=== PATIENT | male | born 1960 | race African-American/Black ===

== ENCOUNTER 2016-12-03 21:05 | Inpatient (IN) | payer MEDICARE, OTHER ==
[2016-12-03 21:27] VITALS: BP 165/108
[2016-12-03] MEDS ORDERED: Albuterol Nebulizer 2.5mg/3mL HHN PRN (23:07)
[2016-12-03] MEDS ORDERED: Maalox 30 mL Cup PO PRN (23:10)
[2016-12-03 23:32] LABS: URINE BILIRUBIN NEGATIVE (NEGATIVE); URINE BLOOD TRACE (NEGATIVE); URINE COLOR YELLOW; URINE GLUCOSE (UA) NEGATIVE (NEGATIVE); URINE KETONE NEGATIVE (NEGATIVE)
[2016-12-03 23:33] LABS: URINE PROTEIN NEGATIVE (NEGATIVE); URINE UROBILINOGEN 0.2 E.U./dL (0.2 - 1.0)
[2016-12-03 23:37] LABS: URINE BACTERIA NONE SEEN /hpf (NONE SEEN); URINE EPITHELIAL CELLS OCCASIONAL /lpf (FEW); URINE RBC NONE SEEN /hpf (0-5); URINE WBC NONE SEEN /hpf (0-5)
[2016-12-04] MEDS: guaiFENesin 200 MG/10 ML UDC PO PRN ×2 (00:24→04:30)
[2016-12-04] MEDS ORDERED: Albuterol Nebulizer 2.5mg/3mL HHN ONE ×2 (03:26→05:52)
[2016-12-04] MEDS: methylPREDNISolone SS 40 mg Vial IVP SCH ×2 (04:23→12:21)
[2016-12-04 06:55] LABS: HEMATOCRIT 40.7 % (39.0-49.0); HEMOGLOBIN 13.4 gm/dL (13.2-17.3); MEAN CELL VOLUME 81.2 fl (80-99); MEAN CORPUSCULAR HEMOGLOBIN 26.6 pg (26.0-30.0); MEAN CORPUSCULAR HGB CONC 32.8 pg (28.0-36.0); PLATELET COUNT 136 Th/cmm (150-400); RED BLOOD COUNT 5.02 Mil/cmm (4.30-5.70); RED CELL DISTRIBUTION WIDTH 16.7 % (11.5-20.0); WHITE BLOOD COUNT 16.7 Th/cmm (4.8-10.8)
[2016-12-04 07:20] LABS: ALB/GLOB RATIO 1.7 (1.0-1.8); ANION GAP 6.2 (7.0-16.0); BUN - UREA NITROGEN 14 mg/dL (7-25); CALCIUM SERUM 9.1 mg/dL (8.6-10.3); CHLORIDE 96 mEq/L (98-107); CREATININE - SERUM 0.7 mg/dL (0.7-1.3); GLUCOSE 117 mg/dL (70-105); POTASSIUM SERUM 3.3 mEq/L (3.5-5.1); SODIUM SERUM 143 mEq/L (136-145)
[2016-12-04 07:21] LABS: ALKALINE PHOSPHATASE 39 U/L (34-104); BILIRUBIN,TOTAL 0.4 mg/dL (0.3-1.0); MAGNESIUM 1.9 mg/dL (1.9-2.7); SGOT 20 U/L (13-39); SGPT/ALT 35 U/L (7-52)
[2016-12-04 07:27] LABS: CARBON DIOXIDE 44.1 mEq/L (21.0-31.0)
[2016-12-04 07:51] LABS: TSH 0.29 uIU/ml (0.34-5.60)
[2016-12-04] MEDS ORDERED: Albuterol Nebulizer 2.5mg/3mL IH SCH (09:00)
[2016-12-04] MEDS ORDERED: Pneumococcal Vaccine 0.5 mL Vial IM ONE (09:00)
[2016-12-04] MEDS ORDERED: Ipratropium Neb 0.5 mg/2.5 mL UD HHN SCH (09:00)
[2016-12-04] MEDS ORDERED: Ipratropium Neb 0.5 mg/2.5 mL UD IH SCH (09:00)
[2016-12-04] MEDS ORDERED: Potassium Chloride 20 mEq ER Tab PO SCH (09:00)
[2016-12-04 09:36] LABS: BAND NEUTROPHILE 7 % (0-10); NEUTROPHILS 86 % (40-80); PLATELET ESTIMATE DECREASED PLATELETS (NORMAL); PLATELET MORPHOLOGY GIANT PLATELETS SEEN (NORMAL); TOTAL CELLS COUNTED 100
[2016-12-04] MEDS ORDERED: Albuterol Nebulizer 2.5mg/3mL HHN SCH (11:00)
--- NOTE | 2016-12-04 11:31 | Diagnostic Imaging Report ---
Portable chest x-ray HISTORY: Shortness of breath The overall heart size is difficult to assess with portable technique. No acute focal pulmonary processes. No hilar or mediastinal abnormalities. IMPRESSION: 1. No acute processes
[2016-12-04] MEDS ORDERED: Potassium Chloride 20 mEq ER Tab PO ONE (12:12)
--- NOTE | 2016-12-04 12:12 | Internal Medicine Prog Note ---
Internal Medicine Subjective - Subjective Service Date: 12/04/16 ([id number]) Patient seen and examined:: with staff Patient is:: awake Internal Medicine Objective - Results Result Diagrams: 12/04/16 06:10 12/04/16 06:10 Recent Labs: Laboratory Last Values WBC 16.7 Th/cmm (4.8-10.8) H 12/04/16 06:10 RBC 5.02 Mil/cmm (4.30-5.70) 12/04/16 06:10 Hgb 13.4 gm/dL (13.2-17.3) 12/04/16 06:10 Hct 40.7 % (39.0-49.0) 12/04/16 06:10 MCV 81.2 fl (80-99) 12/04/16 06:10 MCH 26.6 pg (26.0-30.0) 12/04/16 06:10 MCHC Differential 32.8 pg (28.0-36.0) 12/04/16 06:10 RDW 16.7 % (11.5-20.0) 12/04/16 06:10 Plt Count 136 Th/cmm (150-400) L 12/04/16 06:10 MPV 9.0 fl 12/04/16 06:10 Band Neutrophils % 7 % (0-10) 12/04/16 06:10 Neutrophils (Manual) 86 % (40-80) H 12/04/16 06:10 Lymphocytes 5 % (20-50) L 12/04/16 06:10 Monocytes 2 % (2-10) 12/04/16 06:10 Eosinophils Not Reportable 12/04/16 06:10 Platelet Estimate DECREASED PLATELETS (NORMAL) 12/04/16 06:10 Platelet Morphology GIANT PLATELETS SEEN (NORMAL) 12/04/16 06:10 RBC Morph Micro Appear NORMAL (NORMAL) 12/04/16 06:10 Sodium 143 mEq/L (136-145) 12/04/16 06:10 Potassium 3.3 mEq/L (3.5-5.1) L 12/04/16 06:10 Chloride 96 mEq/L (98-107) L 12/04/16 06:10 Carbon Dioxide 44.1 mEq/L (21.0-31.0) H 12/04/16 06:10 Anion Gap 6.2 (7.0-16.0) L 12/04/16 06:10 BUN 14 mg/dL (7-25) 12/04/16 06:10 Creatinine 0.7 mg/dL (0.7-1.3) 12/04/16 06:10 Est GFR ( Amer) > 60.0 ml/min 12/04/16 06:10 Est GFR (Non-Af Amer) > 60.0 ml/min 12/04/16 06:10 BUN/Creatinine Ratio 20.0 12/04/16 06:10 Glucose 117 mg/dL (70-105) H 12/04/16 06:10 Calcium 9.1 mg/dL (8.6-10.3) 12/04/16 06:10 Magnesium 1.9 mg/dL (1.9-2.7) 12/04/16 06:10 Total Bilirubin 0.4 mg/dL (0.3-1.0) 12/04/16 06:10 AST 20 U/L (13-39) 12/04/16 06:10 ALT 35 U/L (7-52) 12/04/16 06:10 Alkaline Phosphatase 39 U/L (34-104) 12/04/16 06:10 Ammonia 51 umol/L (16-53) 12/04/16 06:10 B-Natriuretic Peptide 198.0 pg/mL (5.0-100.0) H 12/04/16 06:10 Total Protein 5.7 gm/dL (6.0-8.3) L 12/04/16 06:10 Albumin 3.6 gm/dL (4.2-5.5) L 12/04/16 06:10 Globulin 2.1 gm/dL 12/04/16 06:10 Albumin/Globulin Ratio 1.7 (1.0-1.8) 12/04/16 06:10 TSH 0.29 uIU/ml (0.34-5.60) L 12/04/16 06:10 Urine Source CLEAN C 12/03/16 23:19 Urine Color YELLOW 12/03/16 23:19 Urine Clarity CLEAR (CLEAR) 12/03/16 23:19 Urine pH 6.0 12/03/16 23:19 Ur Specific [place] 1.010 (1.005-1.030) 12/03/16 23:19 Urine Protein NEGATIVE mg/dL (NEGATIVE) 12/03/16 23:19 Urine Glucose (UA) NEGATIVE mg/dL (NEGATIVE) 12/03/16 23:19 Urine Ketones NEGATIVE mg/dL (NEGATIVE) 12/03/16 23:19 Urine Blood TRACE (NEGATIVE) 12/03/16 23:19 Urine Nitrate NEGATIVE (NEGATIVE) 12/03/16 23:19 Urine Bilirubin NEGATIVE (NEGATIVE) 12/03/16 23:19 Urine Urobilinogen 0.2 E.U./dL (0.2 - 1.0) 12/03/16 23:19 Ur Leukocyte Esterase NEGATIVE (NEGATIVE) 12/03/16 23:19 Urine RBC NONE SEEN /hpf (0-5) 12/03/16 23:19 Urine WBC NONE SEEN /hpf (0-5) 12/03/16 23:19 Ur Epithelial Cells OCCASIONAL /lpf (FEW) 12/03/16 23:19 Urine Bacteria NONE SEEN /hpf (NONE SEEN) 12/03/16 23:19 - Physical Exam Vitals and I&O: Vital Signs Temp 98.7 F 12/04/16 09:00 Pulse 78 12/04/16 09:23 Resp 20 12/04/16 09:23 BP 179/89 12/04/16 09:00 Pulse Ox 98 12/04/16 09:23 Intake & Output 12/03/16 12/04/16 12/04/16 18:59 06:59 18:59 Intake Total 800 Output Total 1000 Balance -200 Weight (lbs) 180 lb Intake: Oral 800 Output: Urine 1000 Other: # Bowel Movements 1 Stool Characteristics Soft Brown Active Medications: Current Medications Acetaminophen (Tylenol) 650 mg PO Q4HR PRN PRN Reason: Pain or Fever >101 Stop: 02/01/17 23:09 Al Hydrox/Mg Hydrox/Simethicone (Maalox) 30 ml PO Q6HR PRN PRN Reason: Constipation Stop: 02/01/17 23:09 Albuterol Sulfate (Albuterol 2.5mg/3ml Neb Ud) 2.5 mg HHN Q4HR PRN PRN Reason: Wheezing Albuterol Sulfate (Albuterol 2.5mg/3ml Neb Ud) 2.5 mg HHN QIDRT ART Stop: 02/02/17 10:59 Clonidine HCl (Catapres) 0.1 mg PO Q6HR PRN PRN Reason: SBP GREATER THAN 160 Stop: 02/01/17 23:09 Last Admin: 12/04/16 05:52 Dose: 0.1 mg Furosemide (Lasix) 20 mg IVP BID [facility] Stop: 02/02/17 08:59 Last Admin: 12/04/16 09:00 Dose: 20 mg Guaifenesin (Robitussin) 200 mg PO Q4HR PRN PRN Reason: Cough or Congestion Stop: 02/01/17 23:09 Last Admin: 12/04/16 04:30 Dose: 200 mg Heparin Sodium (Porcine) (Heparin) 5,000 units SUBQ Q12HR [facility] Stop: 02/02/17 08:59 Last Admin: 12/04/16 09:04 Dose: 5,000 units Ipratropium [place] (Atrovent Neb 0.5mg/2.5ml) 0.5 mg IH QID [facility] Stop: 02/02/17 08:59 Last Admin: 12/04/16 09:20 Dose: 0.5 mg Meclizine HCl (Antivert) 25 mg PO DAILY PRN PRN Reason: Nausea / Vomiting Stop: 02/01/17 23:09 Methylprednisolone Sodium Succinate (Solu-Medrol) 80 mg IVP Q8HR [facility] Stop: 02/02/17 04:59 Last Admin: 12/04/16 04:23 Dose: 80 mg Ondansetron HCl (Zofran) 4 mg IV Q8H PRN PRN Reason: Nausea / Vomiting Stop: 02/01/17 23:09 Potassium Chloride (Klor-Con) 20 meq PO DAILY [facility] Stop: 02/02/17 08:59 Last Admin: 12/04/16 08:59 Dose: 20 meq Zolpidem Tartrate (Ambien) 10 mg PO HS PRN PRN Reason: Insomnia Stop: 02/01/17 23:09 General: alert HEENT: NC/AT, PERKATIE Internal Medicine Assmt/Plan - Assessment Assessment: acute CHF exacerbation hypertensive urgency acute copd exac HX ASTHMA HX SEIZURE
--- NOTE | 2016-12-04 13:40 | History & Physical ---
CHIEF COMPLAINT: Shortness of breath. HISTORY OF PRESENT ILLNESS: This is a 56-year-old male who was a direct admission from [facility]. According to the patient, he has been experiencing shortness of breath for a couple of days associated with productive cough. The patient states that when he is lying flat, he states that he feels like he is drowning. The patient also states that he is homeless. Due to insurance purposes, the patient is now here at [facility]. The patient denied any fevers, any chills, any chest pain. PAST MEDICAL HISTORY: Asthma and seizures. SOCIAL HISTORY: Drinks alcohol occasionally, but denies any street drugs. ALLERGIES: PENICILLIN. FAMILY HISTORY: Noncontributory. REVIEW OF SYSTEMS: GENERAL: Denies any fevers, any chills. CARDIOVASCULAR: Denies any chest pain. RESPIRATORY: Complaints of shortness of breath when oxygen is off. Denies any cough. GASTROINTESTINAL: Denies any nausea, vomiting, diarrhea. GENITOURINARY: Denies any dysuria. All other systems are reviewed by me and all are negative. PHYSICAL EXAMINATION: GENERAL: The patient is well developed, well nourished, in no acute distress. VITAL SIGNS: Temperature 98.7, heart rate 77, blood pressure 179/89, respirations 17, O2 97%. HEENT: Head; normocephalic, atraumatic. NECK: Supple. No mass. LUNGS: Few rhonchi bilaterally upon auscultation. HEART: Regular rate and rhythm. No murmurs, no gallops. SKIN: Intact, warm to touch. ABDOMEN: Soft, nontender, nondistended. Positive bowel sounds in all 4 quadrants. ASSESSMENT: 1. Acute congestive heart failure exacerbation, hypertensive urgency, acute chronic obstructive pulmonary disease exacerbation. 2. History of asthma and history of seizures. PLAN: The patient will be admitted to the telemetry unit. We will get a BNP and will get a 2D echo. The patient will be kept on Lasix 20 mg IV push. The patient will also have a cardiology consult. We will continue to monitor the patient. [facility]# [id number]
--- NOTE | 2016-12-04 16:00 | Cardiology ---
Patient of Dr. Baker. M-MODE ECHOCARDIOGRAM: Mitral valve, anterior leaflet of mitral valve shows normal excursion, EF velocity. Posterior leaflets of mitral valve shows normal excursion. Left ventricular posterior wall shows increased thickness, normal excursion. Interventricular septum shows increased thickness, normal excursion, hypertrophy of the left ventricle, ejection fraction 65%. Left atrium normal. Aortic root shows normal dimension, normal excursion of aortic leaflets. CONCLUSION: Hypertrophy of the left ventricle, ejection fraction 65%. 2D ECHO: Long axis view showed normal sized left ventricle with hypertrophy of the left ventricle. Left atrium normal. Aortic root shows normal dimension, normal excursion of aortic leaflets. Short axis view of mitral valve normal. Short axis view of aortic valve normal. Apical four chamber view showed normal sized left ventricle with hypertrophy of the left ventricle. Left atrium normal. Right ventricular cavity, right atrium normal, no pericardial effusion, ejection fraction 65%. CONCLUSION: Normal 2D echo, ejection fraction 65%, hypertrophy of the left ventricle. Doppler study shows trace mitral regurgitation, prominent A wave consistent with poor compliance of left ventricle. [facility]# [id number]
--- NOTE | 2016-12-05 05:06 | Consultation ---
The patient was seen, chart reviewed, discussed with staff. HISTORY OF PRESENT ILLNESS: The patient is a 56-year-old male with multiple medical problems, history of mental illness now admitted to the hospital, was transferred from [facility]. The patient has CHF exacerbation. The patient admits to history of schizophrenia and prior hospitalization. The patient said he forgot about medication he takes in. The patient was seen by staff talking to himself. The patient is somewhat confused at times and irritable, but he does not have any suicidal thoughts. PAST PSYCHIATRIC HISTORY: Significant for prior hospitalization, history of mental illness as per the patient's report. PSYCHOSOCIAL HISTORY: The patient said he was staying somewhere in [place], but now he is homeless according to his records. PAST MEDICAL HISTORY: As per Dr. Baker's H and P. MENTAL STATUS EXAMINATION: The patient was on the side of the bed eating his lunch. His speech was fast, at times episodes of rambling. The patient is noted to be responding to internal stimuli. The patient is somewhat guarded and paranoid. He is oriented to person who is in hospital somewhere in [place]. Initially he said that he was 32 years old, but when asked about his date of he was able to recall his date of and he corrected himself. No suicidal thoughts. ASSESSMENT: Psychosis, NOS, rule out schizophrenia, paranoid type ____. PLAN: At this time, would recommend continuation of medical supportive measures. We will add risperidone 0.5 mg p.o. at nighttime. We will follow closely. The patient's placement is of a concern given that he is homeless and given he has multiple medical problems. We will follow on this issue with case management. Thank you for the consultation. JOB# [id number]
== END 2016-12-04 13:15 | disposition left against medical advice (07) | DRG 190 ==
LOC: TELE 21:05
PROVIDERS: ADMIT Internal Medicine; ATTEND Internal Medicine
PROC: 3E0234Z Introduction of Serum, Toxoid and Vaccine into Muscle, Percutaneous Approach (ICD-10-PCS; principal; 2016-12-04)
DX: J44.1 Chronic obstructive pulmonary disease with (acute) exacerbation (principal); I50.23 Acute on chronic systolic (congestive) heart failure; I11.0 Hypertensive heart disease with heart failure; I16.0 Hypertensive urgency; J45.909 Unspecified asthma, uncomplicated; Z53.21 Procedure and treatment not carried out due to patient leaving prior to being seen by health care provider; F20.9 Schizophrenia, unspecified; F29 Unspecified psychosis not due to a substance or known physiological condition; Z88.0 Allergy status to penicillin; Z59.0 Homelessness; Z23 Encounter for immunization
CPT/HCPCS: 36415-UA; 71010-TC; 80053-TC; 81001-TC; 82140-TC; 82607-90; 82746-90; 83735-TC; 83880-TC; 84443-TC; 85007-TC; 85027-TC; 87070; 90779; 94640; 94760; J1644; J1940; J2920; J7613; Z7610